=== PATIENT | female | born 1970 | race Caucasian/White ===

== ENCOUNTER 2017-07-18 01:13 | Emergency (ER) | payer OTHER ==
[~2017-07-18] VITALS: Ht 160 cm; Wt 49.9 kg
[~2017-07-18 01:13] MED LIST: ALL DAY ALLERGY10 M3 PO; BACTRIM DS TAB1 EACH PO; BACTROBAN15 GM TP; BENADRYL25 MG PO; BENTYL 10 MG CA10 M1 PO; CIPRO500 MG PO; CIPROFLOXACIN500 M1 PO; FLAGYL500 MG PO; GUAIATUSSIN AC L5 ML PO; HYDROCODON-ACE1 EAC7; HYDROCODONE-AP1 EAC6 PO; IBUPROFEN 800800 M1 PO; IBUPROFEN 800800 MG PO; NAPROSYN500 MG; NOHOMEMEDICATIONS; NORFLEX100 MG PO; ONDANSETRON HCL4 M2 PO; OXYCODONE HCL30 MG; POTASSIUM20 PO; PRILOSEC40 MG PO; SINUS & ALLERG1 EAC1 PO; ULTRACET TABLE1 EACH PO; VALIUM10 MG; VICODIN 5-5001 EACH PO; ZOLOFT 50 MG TA50 M1 PO; [UNRECOGNIZED DRUG - OTHER] PO
[2017-07-18 01:23] VITALS: BP 112/81
[2017-07-18] MEDS ORDERED: VALIUM5 MG (01:43)
== END 2017-07-18 01:52 | disposition left against medical advice (07) ==
LOC: M.ERS 01:13
DX: T14.8XXA Other injury of unspecified body region, initial encounter (principal); W57.XXXA Bitten or stung by nonvenomous insect and other nonvenomous arthropods, initial encounter; Y93.89 Activity, other specified; Y92.89 Other specified places as the place of occurrence of the external cause; Y99.8 Other external cause status; Z88.6 Allergy status to analgesic agent; Z88.8 Allergy status to other drugs, medicaments and biological substances